=== PATIENT | female | born 1955 | race Hispanic/Latino ===

== ENCOUNTER 2020-12-23 05:54 | Day surgery (SDC) | payer OTHER ==
[~2020-12-23] VITALS: Ht 154.9 cm; Wt 77.6 kg
[2020-12-23] MEDS ORDERED: 0.9%NACL 1000ML 1,000 ML IV ONE (06:17)
[2020-12-23 06:35] VITALS: BP 122/63
[2020-12-23] MEDS ORDERED: DAPA10TA PO (06:53)
[2020-12-23] MEDS ORDERED: ENZY1CAP5 PO (06:53)
[2020-12-23] MEDS ORDERED: VITAD50000 PO (06:53)
[2020-12-23] MEDS ORDERED: GLIP-162 PO (06:53)
[2020-12-23] MEDS ORDERED: ATOR20TA65 PO (06:53)
[2020-12-23] MEDS ORDERED: LORA10TA7 PO (06:53)
[2020-12-23] MEDS ORDERED: SITA1TBM7 PO (06:53)
[2020-12-23] MEDS ORDERED: OMEP40CA21 PO (06:53)
[2020-12-23] MEDS ORDERED: PROPOFOL 10 MG/ML 20ML VIAL IV ONE ×3 (08:38→08:59)
[2020-12-23] MEDS ORDERED: LIDOCAINE HCL 400MG/20ML VIAL ONE (08:38)
[2020-12-23] MEDS ORDERED: EPINEPHRINE PF 1MG AMP ONE (08:48)
[2020-12-23 09:16] VITALS: BP 140/55
[2020-12-23 09:26] VITALS: BP 119/62
[2020-12-23 09:36] VITALS: BP 127/62
[2020-12-23 09:48] VITALS: BP 136/64
== END 2020-12-23 09:48 | disposition home or self-care (01) ==
LOC: DAH 05:54 → ENDO 05:54
PROVIDERS: ATTEND Internal Medicine
DX: C7A.8 Other malignant neuroendocrine tumors (principal); Z20.822 Contact with and (suspected) exposure to COVID-19; K21.9 Gastro-esophageal reflux disease without esophagitis; K29.70 Gastritis, unspecified, without bleeding; E11.9 Type 2 diabetes mellitus without complications; E66.01 Morbid (severe) obesity due to excess calories; Z86.010 Personal history of colon polyps; Z86.19 Personal history of other infectious and parasitic diseases
CPT/HCPCS: 43239; 82948; 87635; A4215 ×2; A4216; A4221; A4222; A4223; A4606; A4620; A4657; A4663; C9803; J0171; J2704 ×3; J3490; J7030

== ENCOUNTER 2021-06-09 05:54 | Day surgery (SDC) | payer OTHER ==
[~2021-06-09] VITALS: Ht 154.9 cm; Wt 74.8 kg
[~2021-06-09 05:54] MED LIST: DAPA10TA PO; GLIP-162 PO; OMEP40CA21 PO; SITA1TBM7 PO
[2021-06-09] MEDS ORDERED: 0.9%NACL 1000ML 1,000 ML IV ONE (06:27)
[2021-06-09 06:34] VITALS: BP 105/56
[2021-06-09] MEDS ORDERED: LORA10TA7 PO (07:15)
[2021-06-09] MEDS ORDERED: SIME250C PO (07:15)
[2021-06-09] MEDS ORDERED: ATOR10 PO (07:15)
[2021-06-09] MEDS ORDERED: ATOR40TA69 PO (07:15)
[2021-06-09] MEDS ORDERED: IBUP-2070 PO (07:15)
[2021-06-09] MEDS ORDERED: FAMO-136 PO (07:15)
[2021-06-09] MEDS ORDERED: PROPOFOL 10 MG/ML 20ML VIAL IV ONE (08:11)
[2021-06-09 08:30] VITALS: BP 92/67
== END 2021-06-09 09:08 | disposition home or self-care (01) ==
LOC: ENDO 05:54 → DAH 05:54 → ENDO 09:08
PROVIDERS: ATTEND Internal Medicine
DX: R10.13 Epigastric pain (principal); K31.89 Other diseases of stomach and duodenum; Z20.822 Contact with and (suspected) exposure to COVID-19; K21.9 Gastro-esophageal reflux disease without esophagitis; K76.9 Liver disease, unspecified; K59.04 Chronic idiopathic constipation; E11.9 Type 2 diabetes mellitus without complications; Z98.890 Other specified postprocedural states; Z86.010 Personal history of colon polyps; Z79.899 Other long term (current) drug therapy
CPT/HCPCS: 43237; 43239; 82948; 87635; A4215 ×2; A4221; A4222; A4223; A4606; A4620; A4663; C9803; J2704; J7030